=== PATIENT | male | born 1985 | race Caucasian/White ===

== ENCOUNTER 2022-11-04 20:29 | Outpatient (CLI) | payer OTHER | END 2022-11-04 23:59 | disposition short-term general hospital (02) | LOC: EMS 20:29 | PROVIDERS: ATTEND Emergency Medicine | DX: S89.91XA Unspecified injury of right lower leg, initial encounter (principal); W18.39XA Other fall on same level, initial encounter; Y92.009 Unspecified place in unspecified non-institutional (private) residence as the place of occurrence of the external cause | CPT/HCPCS: A0425; A0429 ==

== ENCOUNTER 2022-11-05 14:16 | Outpatient (CLI) | payer OTHER | END 2022-11-05 23:59 | disposition short-term general hospital (02) | LOC: EMS 14:16 | DX: M25.561 Pain in right knee (principal) | CPT/HCPCS: A0425; A0429 ==